=== PATIENT | female | born 1990 | race African-American/Black ===

== ENCOUNTER 2024-06-15 14:25 | Emergency (ER) | payer OTHER, SELFPAY ==
[2024-06-15 14:36] VITALS: BP 133/85; PULSE 96; RESP 18; TEMP 36.4; O2SAT 95; BMI 32.7
--- NOTE | 2024-06-15 14:39 | ED.ABDPAIN ---
HPI - Abdominal Pain General Chief Complaint: General Medical Stated Complaint: 14 weeks preg, multiple complaints Time Seen by Provider: 06/15/24 17:39 Source: patient Mode of arrival: ambulatory Limitations: no limitations History of Present Illness ED Provider: Nam Lee PA-C HPI narrative: 34 yo female who who is 14 weeks (follows w/ [facility] & [facility]), hx DM on insulin who presents to the ER for evaluation of abdominal pain and cramping associated with constipation. She reports having a tiny BM today with straining, prior to that it was several days. Reports lots of nausea and vomiting as well for the last several days, intermittent for the last several weeks. No vaginal bleeding or camping. Has been taking zofran and reglan for vomiting. OB is aware of her symptoms, they told her to go to ER for r/o obstruction. MD elicited complaint: abdominal pain Pertinent past history: other () Onset (ago): day(s) Pain Consistency: intermittent Location: diffuse Severity: moderate Quality: cramping Radiation: none Migration to: no migration Exacerbating factors: bowel movement Relieving factors: nothing Associated symptoms: nausea, vomiting and constipation Related Data Patient : Yes Previous Rx's ?Medication ?Instructions ?Recorded bisacodyl 10 mg rectal suppository 10 mg DC DAILY PRN constipation 06/15/24 (Dulcolax (bisacodyl)) #12 ea docusate sodium 100 mg capsule 100 mg PO BID #60 caps 06/15/24 (Col-Rite) polyethylene glycol 3350 17 17 g PO DAILY #238 grams 06/15/24 gram/dose oral powder (Miralax) Allergies Allergy/AdvReac Type Severity Reaction Status Date / Time doxycycline Allergy Unknown Verified 06/15/24 14:44 tetracycline Allergy Unknown Verified 06/15/24 14:44 Review of Systems Review of Systems Yes all other systems are reviewed and are negative PMFSH Social History Social History Advance Directives: No Advance Directives Information Provided: No Do you have a plan to hurt others: No Plan Patient : Yes Physical Exam ED Vital Signs: Vital Signs - 24 hr 06/15/24 14:36 06/15/24 17:25 06/15/24 19:22 Temperature 97.6 F 97.4 F 97.6 F Pulse Rate 96 75 84 Respiratory Rate 18 16 16 Blood Pressure 133/85 154/78 H 139/79 Pulse Oximetry 95 100 100 Oxygen Delivery Method Room Air Room Air Room Air BMI result Body Mass Index 32.7 Appearance: Alert. Oriented X3. No acute distress. Head: normocephalic, atraumatic. Eyes: Pupils equal, round and reactive to light. ENT: Pharynx normal. No tonsillar swelling or exudate. Neck: Normal inspection. Neck supple. CVS: Normal heart rate and rhythm. Pulses normal. Respiratory: No respiratory distress. Breath sounds normal. Abdomen: Soft and nontender. +BS x4. pelvic deferred Skin: Skin warm and dry. Normal skin color. Normal skin turgor. No rashes. Extremities: No lower extremity edema. No joint swelling. Neuro/psych: Oriented X 3. No motor deficit. No sensory deficit. CN II-XII intact. Normal speech and cognition. Medical Decision Making Medical Decision Making [facility] Narrative: 34 yo presenting for constipation, cramping abdominal pain x2 weeks with N/V for weeks as well. no vaginal bleeding or uterine cramping. labs are reassuring. abd exam is reassuring - not c/w obstruction. rectal exam today was normal, no stool ball. suppository given with good effect. she had BM here in the ER. tolerating PO stable for d/c home with mariam regimen. OB follow up. Differential Diagnosis Differential Diagnoses: The differential diagnosis associated with the presentation includes constipation 2/2 , bowel obstruction, oglives syndrome, dehydration, LURDES, hyperemesis gravidarum, DKA Admission/Observation Consideration of admission/observation: Escalation of care including admission/observation considered Lab Data [facility] Lab Attestation statement: I reviewed the patient's lab results. 06/15/24 14:57 06/15/24 14:57 Labs: Lab Results 06/15/24 06/15/24 Range/Units 14:57 17:35 WBC 10.6 (4.8-10.8) X10*3/uL RBC 4.72 (4.20-5.50) X10*6/uL Hgb 12.5 (12.0-16.0) g/dl Hct 35.7 L (37.0-47.0) % MCV 75.6 L (80.0-98.0) fL MCH 26.5 L (27.0-33.0) pg MCHC 35.0 (31.0-35.0) g/dl RDW 13.2 (11.0-16.0) % Plt Count 269 (160-400) X10*3/uL MPV 9.7 (9.4-12.3) fL Immature Gran % (Auto) 0.8 H (0.0-0.4) % Neut % (Auto) 70.4 (45-73) % Lymph % (Auto) 21.7 (20-40) % Bee % (Auto) 6.0 (2-11) % Eos % (Auto) 0.6 (0-4) % Baso % (Auto) 0.5 (0-2) % Lymph # (Auto) 2.3 (1.2-4.9) X10*3/uL Bee # (Auto) 0.6 (0.1-1.2) X10*3/uL Eos # (Auto) 0.1 (0.0-0.4) X10*3/uL Baso # (Auto) 0.1 (0.0-0.2) X10*3/uL Abs Immat Gran (auto) 0.08 H (0.00-0.03) X10*3/uL Absolute Neuts (auto) 7.5 (2.0-8.3) x10*3/uL Absolute Nucleated RBC 0.000 (0.0-0.012) X10*3/uL Nucleated RBC % (auto) 0.0 (0.0-0.2) /100WBC Sodium 138 (135-145) mmol/L Potassium 4.0 (3.3-5.1) mmol/L Chloride 104 (96-108) mmol/L Carbon Dioxide 25 (22-29) mmol/L Anion Gap 13 (12-20) BUN 5 L (9-16) mg/dL Creatinine 0.65 (0.5-1.4) mg/dL Estim Creat Clear Calc 148.8 Estimated GFR > 60 Random Glucose 137 H (60-115) mg/dL Calcium 9.6 (8.4-10.2) mg/dL Magnesium 1.6 (1.6-2.6) mg/dL Total Bilirubin 0.2 (0.0-1.0) mg/dL Direct Bilirubin < 0.2 (0.0-0.5) mg/dL AST 8 (5-31) U/L ALT 11 (0-31) U/L Alkaline Phosphatase 49 (39-117) U/L Total Protein 7.2 (6.5-8.0) g/dL Albumin 3.6 (3.5-5.0) g/dL Lipase 18 (8-78) U/L Beta HCG, Quant 33241 mIU/mL Urine Color Yellow Urine Appearance Clear Urine pH 6.0 (5.0-9.0) Ur Specific [place] 1.020 (1.005-1.025) Urine Protein Negative (Neg-Trace) mg/dL Urine Glucose (UA) Negative (Negative) mg/dL Urine Ketones 40 (Negative) mg/dL Urine Blood Negative (Negative) Urine Nitrite Negative (Negative) Ur Leukocyte Esterase Negative (Negative) Independent Historian Clinical information obtained from an independent historian. History obtained from or confirmed by: Spouse Tests considered The following testing was considered but not selected: considered KUB however and low suspicion for SBO Prescription Management I considered prescription management with: Pain Medication and Other (laxatives) Chronic Conditions Patient?s care impacted by: Diabetes Medications Administered Discontinued Medications Generic Name Dose Route Start Last Admin Trade Name Freq PRN Reason Stop Dose Admin Acetaminophen 975 mg 06/15/24 16:50 06/15/24 16:55 Acetaminophen 325 Mg Tablet PO 06/15/24 16:51 975 mg ONCE ONE Administration Bisacodyl 10 mg 06/15/24 17:39 06/15/24 18:01 Bisacodyl 10 Mg Supp.Rect DC 06/15/24 17:40 10 mg ONCE ONE Administration Docusate Sodium 200 mg 06/15/24 17:39 06/15/24 18:00 Docusate Sodium 100 Mg Capsule PO 06/15/24 17:40 200 mg ONCE ONE Administration Polyethylene Glycol 17 gm 06/15/24 17:39 06/15/24 18:01 Polyethylene Glycol 3350 17 Gm Powd.Pack PO 06/15/24 17:40 17 gm ONCE ONE Administration Critical Care Time Critical Care Time Critical Care Time: No Discharge Plan Discharge Clinical Impression: Constipation Qualifiers: Constipation type: unspecified constipation type Qualified Code(s): K59.00 - Constipation, unspecified Patient Disposition: Home, Self-Care Instructions: Constipation (DC) Additional Instructions: take the prescribed medications for constipation continue your nausea meds follow up with your OB as soon as possible If you develop new or worsening symptoms call 911 or come back to the ER for further evaluation. Prescriptions: New polyethylene glycol 3350 [Miralax] 17 gram/dose powder 17 g PO DAILY Qty: 238 0RF docusate sodium [Col-Rite] 100 mg capsule 100 mg PO BID Qty: 60 0RF bisacodyl [Dulcolax (bisacodyl)] 10 mg suppository 10 mg DC DAILY PRN (Reason: constipation) Qty: 12 0RF Stand Alone Forms: Work/School Release Interventions: ED Discharge Assessment Last Done: 06/15/24 19:22 Discharge Date/Time: 06/15/24 19:23 Print Language: Estonian
[2024-06-15 14:59] LABS: MANUAL DIFF FLAG NO
[2024-06-15 15:01] LABS: Basophils Absolute Auto 0.1 X10*3/uL (0.0-0.2); Basophils Percent Auto 0.5 % (0-2); Eosinophils Absolute Auto 0.1 X10*3/uL (0.0-0.4); Eosinophils Percent Auto 0.6 % (0-4); Hematocrit 35.7 % (37.0-47.0); Hemoglobin 12.5 g/dl (12.0-16.0); Imm Gran Abs Auto 0.08 X10*3/uL (0.00-0.03); Imm Gran Pct Auto 0.8 % (0.0-0.4); Lymphocytes Absolute Auto 2.3 X10*3/uL (1.2-4.9); Lymphocytes Percent Auto 21.7 % (20-40); Mean Corpuscular Hemoglobin 26.5 pg (27.0-33.0); Mean Corpuscular Volume 75.6 fL (80.0-98.0); Mean Platelet Volume 9.7 fL (9.4-12.3); Monocytes Absolute Auto 0.6 X10*3/uL (0.1-1.2); Neutrophils Absolute Auto 7.5 x10*3/uL (2.0-8.3); Neutrophils Percent Auto 70.4 % (45-73); Platelet Count 269 X10*3/uL (160-400); Red Blood Count 4.72 X10*6/uL (4.20-5.50); Red Cell Distribution Width 13.2 % (11.0-16.0); White Blood Count 10.6 X10*3/uL (4.8-10.8)
[2024-06-15 15:26] LABS: Alanine Aminotransferase 11 U/L (0-31); Albumin Level 3.6 g/dL (3.5-5.0); Alkaline Phosphatase 49 U/L (39-117); Anion Gap 13 (12-20); Aspartate Amino Transferase 8 U/L (5-31); Bilirubin Direct < 0.2 mg/dL (0.0-0.5); Bilirubin Total 0.2 mg/dL (0.0-1.0); Blood Urea Nitrogen 5 mg/dL (9-16); Calcium 9.6 mg/dL (8.4-10.2); Carbon Dioxide 25 mmol/L (22-29); Chloride 104 mmol/L (96-108); Creatinine Clr Calc Pharmacy 148.8; Estimated Glomerular Filt Rate > 60; Glucose Random 137 mg/dL (60-115); Lipase 18 U/L (8-78); Magnesium 1.6 mg/dL (1.6-2.6); Sodium 138 mmol/L (135-145); Total Protein 7.2 g/dL (6.5-8.0)
[2024-06-15] MEDS: Acetaminophen 325 MG TABLET 975 MG PO (16:55)
[2024-06-15 17:25] VITALS: BP 154/78; PULSE 75; RESP 16; TEMP 36.3; O2SAT 100
[2024-06-15 17:42] LABS: Appearance Urine Clear; Color Urine Yellow; Glucose Urine UA Negative (Negative); Leukocyte Esterase Urine Negative (Negative); Nitrite Urine Negative (Negative); Urine Blood Negative (Negative); Urine Ketones 40 mg/dL (Negative); Urine Protein Negative (Neg-Trace)
[2024-06-15] MEDS: Docusate Sodium 100 MG CAPSULE 200 MG PO (18:00)
[2024-06-15] MEDS: bisacodyL 10 MG SUPP.RECT PR (18:01)
[2024-06-15] MEDS: polyethylene glycoL 3350 17 GM POWD.PACK PO (18:01)
--- NOTE | 2024-06-15 18:10 | PC.NURSE ---
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 Awaiting improvement in symptoms, aware of plan of care.
[2024-06-15 19:22] VITALS: BP 139/79; PULSE 84; RESP 16; TEMP 36.4; O2SAT 100
--- NOTE | 2024-06-15 19:22 | PC.NURSE ---
Pt reports successful BM, requesting dc home with work note
== END 2024-06-15 19:23 | disposition home or self-care (01) ==
PROVIDERS: Physician Assistant; Emergency Provider Emergency Medicine Emergency Medical Services
DX: O26.892 Other specified pregnancy related conditions, second trimester (principal); K59.00 Constipation, unspecified; R10.9 Unspecified abdominal pain; R11.2 Nausea with vomiting, unspecified; Z3A.14 14 weeks gestation of pregnancy; E11.8 Type 2 diabetes mellitus with unspecified complications; Z79.4 Long term (current) use of insulin
CPT/HCPCS: 36415; 80048; 80076; 81003; 83690; 83735; 84702; 85025; 99283